=== PATIENT | male | born 1995 | race Caucasian/White ===

== ENCOUNTER 2018-08-18 13:22 | Outpatient (CLI) | payer BC, SELFPAY ==
--- NOTE | 2018-08-18 15:40 | DI.RAD_ITS ---
SYMPTOMS/DIAGNOSIS: COUGH X 4 MONTHS, HX OF SBE AND VALVE REPLACEMENT, R05 PA AND LATERAL CHEST: The heart is not enlarged. There is a transvenous cardiac pacemaker in position. The lungs are clear. No pleural effusion seen. CONCLUSION: No evidence of acute intrapulmonary process.
== END 2018-08-18 13:42 ==
PROVIDERS: PCP Pediatrics; Visit Provider Pediatrics
DX: R05 Cough (principal); Z95.0 Presence of cardiac pacemaker
CPT/HCPCS: 71046